=== PATIENT | male | born 1975 | race Caucasian/White ===

== ENCOUNTER 2024-10-25 08:24 | Day surgery (SDC) | payer OTHER ==
[2024-10-25] MEDS ORDERED: Ketamine 500 mg/10 ML MDV IV ONE (08:25)
[2024-10-25] MEDS ORDERED: Midazolam 1 MG/ML 2 ML SDV IV ONE (08:25)
[2024-10-25] MEDS ORDERED: Propofol 200 MG/20 ML SDV IV ONE (08:25)
[2024-10-25] MEDS ORDERED: Sodium Chloride 0.9% 10 ML Syringe FLUSH PRN (08:30)
[2024-10-25] MEDS: Lactated Ringers 1,000 ML IV SCH (09:40)
[2024-10-25] MEDS: Simethicone Drops 40 MG/0.6 ML 30 ML Bottle ONE (10:13)
== END 2024-10-25 11:50 | disposition home or self-care (01) ==
LOC: FB.SDS 08:24
PROVIDERS: ATTEND Surgery
DX: Z12.11 Encounter for screening for malignant neoplasm of colon (principal); E66.01 Morbid (severe) obesity due to excess calories; Z68.42 Body mass index [BMI] 45.0-49.9, adult; Z79.899 Other long term (current) drug therapy
CPT/HCPCS: 00812; A9270-GY; J2250; J2704; J3490; J7120